=== PATIENT | male | born 1980 | race Caucasian/White ===

== ENCOUNTER 2019-04-05 17:35 | Emergency (ER) | payer MEDICAID, OTHER ==
[2019-04-05 18:51] VITALS: BP 108/73
--- NOTE | 2019-04-05 19:40 | UC ---
Hip/Pelvis Pain - HPI Summary HPI Summary: 38 yo with about 5 months of progressive right hip pain without an injury, with worsening for the last several weeks after he rested more. 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 Takes acetaminophen every morning, and pain lessens as he works in the day. Relieved with lying flat. - History Of Current Complaint Chief Complaint: UCGeneralIllness Stated Complaint: RIGHT LEG/HIP PAIN, BACK PAIN Time Seen by Provider: 04/05/19 19:38 Hx Obtained From: Patient Onset/Duration: Gradual Onset, Lasting Weeks, Worse Since - past 4 or 5 weeks Severity Initially: Moderate Severity Currently: Moderate Pain Intensity: 4 Location: Diffuse - right buttock and hip area. Character Of Pain: Aching Aggravating Factor(s): Weight Bearing Alleviating Factor(s): Rest, Position, OTC Medications Associated Signs And Symptoms: Positive: Negative - Allergies/Home Medications Allergies/Adverse Reactions: Allergies Allergy/AdvReac Type Severity Reaction Status Date / Time NUTRA SWEET Allergy Unknown Uncoded 04/05/19 18:51 Reaction Details Home Medications: Home Medications Acetaminophen TAB* [Tylenol TAB*] 650 mg PO Q4H PRN 04/05/19 [History Confirmed 04/05/19] PMH/Surg Hx/FS Hx/Imm Hx Previously Healthy: Yes - Surgical History Surgical History: Yes Surgery Procedure, Year, and Place: T&A. EAR TUBES - Family History Known Family History: Positive: Cardiac Disease, Hypertension - Social History Occupation: Employed Part-time Alcohol Use: Daily Substance Use Type: None Smoking Status (MU): Light Every Day Tobacco Smoker Type: Cigarettes Amount Used/How Often: 1/2 PPD Have You Smoked in the Last Year: Yes Review of Systems All Other Systems Reviewed And Are Negative: Yes Constitutional: Positive: Negative Skin: Positive: Negative Eyes: Positive: Negative ENT: Positive: Negative Respiratory: Positive: Negative Cardiovascular: Positive: Negative Gastrointestinal: Positive: Negative. Negative: Abdominal Pain Genitourinary: Positive: Negative Motor: Positive: Negative Neurovascular: Positive: Negative Musculoskeletal: Positive: Arthralgia, Myalgia Neurological: Positive: Negative Psychological: Positive: Negative Is Patient Immunocompromised?: No Physical Exam Triage Information Reviewed: Yes Appearance: Pain Distress - moderate, Thin, Other: - antalgic gait with decreased weight on the right hip Vital Signs: Initial Vital Signs Temp 97.8 F 04/05/19 18:41 Pulse 77 04/05/19 18:41 Resp 16 04/05/19 18:41 BP 108/73 04/05/19 18:41 Pulse Ox 98 04/05/19 18:41 Vital Signs Reviewed: Yes ENT: Positive: Normal ENT inspection Respiratory: Positive: Lungs clear, Normal breath sounds Cardiovascular: Positive: RRR, No Murmur Abdomen Description: Positive: Nontender, No Organomegaly, Soft Musculoskeletal: Positive: Strength Intact, No Edema, ROM Limited @ - mild restriction at right hip. Pain with flexion., Other: - SLR bilaterally limited by tight hamstrings. Neurological Exam: Normal Psychological Exam: Normal Skin Exam: Normal Diagnostics - Radiology No standard instances Radiology Interpretation Completed By: ED Physician - Normal joint space right hip, normal pelvis. Hip Injury Course/Dx - Course Course Of Treatment: Discussed has significant pain, could be soft tissue origin. Movement in the lumbar spine is in range, and SLR is normal. Possible chronic gluteal strain with an element of sciatica. PT referral. He declined a PT referral. - Differential Dx/Diagnosis Differential Diagnosis/HQI/PQRI: Bursitis, Sprain, Strain, Other - osteoarthritis Provider Diagnosis: Gluteal pain Discharge ED - Sign-Out/Discharge Documenting (check all that apply): Patient Departure All imaging exams completed and their final reports reviewed: No - Discharge Plan Condition: Stable Disposition: HOME Patient Education Materials: Hip Pain (ED) Referrals: No Primary Care Phys,NOPCP [Primary Care Provider] - Additional Instructions: The cause of your hip pain is uncertain, but could be a chronic stain in the gluteal muscles with some irritation of the sciatic nerve. I have included a referral to Sports medicine for evaluation because they can do more testing and give advice regarding ways to heal this. Ensure that you begin stretching your hamstrings as discussed. - Billing Disposition and Condition Condition: STABLE Disposition: Home
--- NOTE | 2019-04-06 07:36 | UC ---
- Progress Note Progress Note: xray report right hip : FINDINGS: The bones are in normal alignment. No fracture is seen. Joint spaces appear maintained. There is a small area of calcification which appears to be within the right acetabular labrum. IMPRESSION : NO EVIDENCE FOR FRACTURE OR SIGNIFICANT ARTHRITIC CHANGE. Course/Dx - Diagnoses Provider Diagnoses: Gluteal pain Discharge ED - Sign-Out/Discharge Documenting (check all that apply): Patient Departure All imaging exams completed and their final reports reviewed: Yes - Discharge Plan Condition: Stable Disposition: HOME Patient Education Materials: Hip Pain (ED) Referrals: No Primary Care Phys,NOPCP [Primary Care Provider] - Additional Instructions: The cause of your hip pain is uncertain, but could be a chronic stain in the gluteal muscles with some irritation of the sciatic nerve. I have included a referral to Sports medicine for evaluation because they can do more testing and give advice regarding ways to heal this. Ensure that you begin stretching your hamstrings as discussed. - Billing Disposition and Condition Condition: STABLE Disposition: Home
== END 2019-04-05 20:34 | disposition home or self-care (01) ==
LOC: UCCORT 17:35
DX: M79.10 Myalgia, unspecified site (principal); Z91.018 Allergy to other foods; F17.210 Nicotine dependence, cigarettes, uncomplicated
CPT/HCPCS: 99201; G0463